=== PATIENT | female | born 1995 | race Caucasian/White ===

== ENCOUNTER → 2019-04-15 | Outpatient (CLI) | payer OTHER ==
[2019-04-15 18:07] LABS: T4, Free (Free Thyroxine) 1.17 ng/dL (0.78-2.19)
--- NOTE | 2019-04-15 20:48 | US ---
EXAMINATION TYPE: US thyroid st tissue head/neck DATE OF EXAM: 04/15/2019 COMPARISON: NONE CLINICAL HISTORY: E04.1 Thyroid nodule. Abnormal physical exam by GLAND SIZE: Right Lobe: 5.5 x 1.8 x 1.7 cm Overall Parenchyma: homogenous Left Lobe: 5.2 x 1.6 x 1.6 cm Overall Parenchyma: homogeneous Isthmus Thickness: 0.3 cm NODULES RIGHT: # of nodules measured on right: 0 LEFT: # of nodules measured on left: 0 ISTHMUS: # of nodules measured in the isthmus: 0 Bilateral neck scanned, no evidence of lymphadenopathy. Tiny subcentimeter cystic nodule right lobe measures 0.2 cm. There is homogeneous normal-sized thyroid with few tiny cystic nodules right thyroid lobe measuring u nder 5 mm in size. IMPRESSION: As above. Normal-sized thyroid without suspicious greater than 1 cm nodules.
== END | disposition home or self-care (01) ==
LOC: RADUSWWP 16:10
PROVIDERS: ATTEND Otolaryngology
DX: E04.1 Nontoxic single thyroid nodule (principal)
CPT/HCPCS: 76536; 84439; 84443; 86376